=== PATIENT | male | born 1960 | race Caucasian/White ===

== ENCOUNTER → 2023-08-05 | Outpatient (CLI) | payer SELFPAY | LOC: M PLAIMG 14:27 | PROVIDERS: ATTEND Orthopaedic Surgery Hand Surgery | DX: M25.552 Pain in left hip (principal); R59.0 Localized enlarged lymph nodes ==

== ENCOUNTER → 2024-02-19 | Outpatient (CLI) | payer OTHER | LOC: M PLAIMG 07:02 | PROVIDERS: ATTEND Student in an Organized Health Care Education/Training Program | DX: M25.552 Pain in left hip (principal) ==

== ENCOUNTER 2024-05-27 06:48 | Emergency (ER) | payer OTHER ==
[~2024-05-27] VITALS: Ht 180.3 cm; Wt 88.6 kg
[2024-05-27] MEDS ORDERED: IBUP200C29 PO (07:04)
[2024-05-27] MEDS: KETOROLAC 30 MG/ML 1ML VIAL IM ONE (08:20)
[2024-05-27] MEDS ORDERED: MEDR4TAB PO (08:51)
[2024-05-27 09:11] VITALS: BP 139/65; TEMP 98; O2SAT 100
== END 2024-05-27 09:13 | disposition home or self-care (01) ==
LOC: M ED 06:48
DX: S46.011A Strain of muscle(s) and tendon(s) of the rotator cuff of right shoulder, initial encounter (principal); S43.421A Sprain of right rotator cuff capsule, initial encounter; W00.0XXA Fall on same level due to ice and snow, initial encounter; Y92.9 Unspecified place or not applicable; Y93.89 Activity, other specified; Y99.0 Civilian activity done for income or pay; F17.200 Nicotine dependence, unspecified, uncomplicated